=== PATIENT | female | born 1985 ===

== ENCOUNTER 2017-12-22 11:03 | Outpatient (CLI) | payer OTHER ==
[~2017-12-22] VITALS: Ht 167.6 cm; Wt 96.2 kg
[2017-12-22] MEDS ORDERED: ZYRTEC10 MG PO (12:26)
[2017-12-22] MEDS ORDERED: FLONASE16 GM NASAL (12:26)
== END 2017-12-22 11:15 | disposition home or self-care (01) ==
LOC: OFIC 805 11:03
DX: J31.0 Chronic rhinitis (principal); J34.2 Deviated nasal septum; J34.3 Hypertrophy of nasal turbinates; H61.23 Impacted cerumen, bilateral